=== PATIENT | female | born 2000 | race Caucasian/White ===

== ENCOUNTER 2024-08-03 21:53 | Inpatient (IN) | payer BC ==
[2024-08-03] MEDS: Sodium Chloride 0.9% 10 ML Syringe FLUSH ONE (22:41)
[2024-08-03 22:51] LABS: APPEARANCE,URINE CLOUDY (Clear); BILIRUBIN,URINE NEGATIVE (Negative); COLOR,URINE YELLOW (Yellow); GLUCOSE,URINE NEGATIVE (Negative); KETONES,URINE NEGATIVE (Negative); LEUKOCYTE ESTERASE,URINE NEGATIVE (Negative); NITRITE,URINE NEGATIVE (Negative); OCCULT BLOOD,URINE NEGATIVE (Negative); PROTEIN,URINE NEGATIVE (Negative)
[2024-08-03] MEDS: Sodium Chloride 0.9% 1,000 ML IV ONE (22:54)
[2024-08-03 22:55] LABS: BASOPHILS PERCENT AUTO 0.2 % (0.0-1.0); EOSINOPHILS ABSOLUTE AUTO 0.1 K/mm3 (0.0-0.4); EOSINOPHILS PERCENT AUTO 0.9 % (0.0-6.0); HEMATOCRIT 41.9 % (37.0-47.0); HEMOGLOBIN 14.3 gm/dl (12.0-16.0); IMMATURE GRAN ABSOLUTE AUTO 0.03 K/mm3 (0.00-0.05); IMMATURE GRAN PERCENT AUTO 0.2 % (0.0-0.4); LYMPHOCYTES PERCENT AUTO 14.4 % (24.0-44.0); MEAN CORPUSCULAR HEMOGLOBIN 28.9 pg (28.0-32.0); MEAN CORPUSCULAR HGB CONC 34.1 g/dl (32.0-36.0); MEAN CORPUSCULAR VOLUME 84.6 fl (83.0-99.0); MEAN PLATELET VOLUME 9.7 fl (9.4-12.3); MONOCYTES ABSOLUTE AUTO 0.7 K/mm3 (0.0-0.8); MONOCYTES PERCENT AUTO 5.3 % (0.0-8.0); PLATELET COUNT,PLT 303 K/mm3 (150-400); RED BLOOD CELL COUNT 4.95 M/mm3 (4.10-5.30); WHITE BLOOD CELL COUNT,WBC 13.92 K/mm3 (3.9-11.3)
[2024-08-03] MEDS: Famotidine 20 MG Tab PO ONE (22:57)
[2024-08-03] MEDS: Alum Hydrox/Mag Hydrox/Simeth 30 ML, Lidocaine 2% 15 ML PO ONE (22:57)
[2024-08-03 23:14] LABS: A/G RATIO 1.3 (1-2); ALBUMIN 4.3 g/dl (3.4-5.0); ANION GAP 11.8 (5-15); BILIRUBIN TOTAL 0.4 mg/dL (0.2-1.0); BUN/CREATININE RATIO 13.3 (14-18); CALCIUM 9.2 mg/dL (8.5-10.1); CREATININE 0.9 mg/dL (0.55-1.02); EST CRCL DRUG DOSING (CG) 94.54 mL/min; POTASSIUM,K 3.8 mEq/L (3.5-5.1); PROTEIN TOTAL,TP 7.7 g/dl (6.4-8.2)
[2024-08-03] MEDS: Sodium Chloride 0.9% 10 ML Syringe FLUSH PRN (23:19)
[2024-08-03] MEDS: Iopamidol 612 MG/ML 100 ML Bottle IVPUSH ONE (23:19)
[2024-08-03] MEDS: Iopamidol 612 MG/ML 30 ML SDV IVPUSH ONE (23:19)
[2024-08-04] MEDS: fentaNYL 100 MCG/2 ML SDV IVPUSH ONE (00:08)
[2024-08-04] MEDS: metroNIDAZOLE/Normal Saline 500 MG in Premix Bag 1 BAG IV ONE (00:12)
[2024-08-04] MEDS: Sodium Chloride 0.9% 1,000 ML IV ONE (01:33)
[2024-08-04] MEDS: Levofloxacin/Dextrose 5%-Water 750 MG in Premix Bag 1 BAG IV ONE (01:34)
[2024-08-04] MEDS: fentaNYL 100 MCG/2 ML SDV IVPUSH PRN (01:34)
[2024-08-04] MEDS: Ondansetron 4 MG/2 ML SDV IVPUSH PRN (01:57)
[2024-08-04] MEDS ORDERED: Midazolam 1 MG/ML 2 ML SDV ONE (05:30)
[2024-08-04] MEDS ORDERED: Rocuronium 50 MG/5 ML Vial ONE (05:30)
[2024-08-04] MEDS ORDERED: Sugammadex Sodium 200 MG/2 ML VIAL IV ONE (05:30)
[2024-08-04] MEDS ORDERED: Bupivacaine 0.5% 30 ML SDV ONE (05:30)
[2024-08-04] MEDS ORDERED: Propofol 200 MG/20 ML SDV ONE (05:30)
[2024-08-04] MEDS ORDERED: Lidocaine 1% 5 ML VIAL ONE (05:30)
[2024-08-04] MEDS ORDERED: fentaNYL 250 MCG/5 ML SDV ONE (05:30)
[2024-08-04] MEDS ORDERED: Ondansetron 4 MG/2 ML SDV ONE (05:30)
[2024-08-04] MEDS ORDERED: Ketorolac 30 MG/ML SDV ONE (05:30)
[2024-08-04] MEDS ORDERED: EPINEPHrine 1 MG/ML SDV ONE (05:30)
[2024-08-04] MEDS ORDERED: Dexamethasone 4 MG/ML 5 ML MDV ONE (05:30)
[2024-08-04] MEDS ORDERED: metroNIDAZOLE/Normal Saline 500 MG in Premix Bag 1 BAG IV ONE (06:32)
[2024-08-04] MEDS ORDERED: Levofloxacin/Dextrose 5%-Water 750 MG in Premix Bag 1 BAG IV ONE (06:33)
[2024-08-04] MEDS ORDERED: Levofloxacin/Dextrose 5%-Water 250 MG in Premix Bag 1 BAG IV ONE (06:37)
[2024-08-04] MEDS ORDERED: fentaNYL 100 MCG/2 ML SDV IVPUSH PRN (06:47)
[2024-08-04] MEDS ORDERED: Sodium Chloride 0.9% 10 ML Syringe FLUSH PRN (06:47)
[2024-08-04] MEDS ORDERED: HYDROmorphone 0.5 MG/0.5 ML Syringe IVPUSH PRN (06:47)
[2024-08-04] MEDS ORDERED: Ondansetron 4 MG/2 ML SDV IVPUSH PRN (06:47)
[2024-08-04] MEDS ORDERED: Lactated Ringers 1,000 ML IV SCH (07:00)
[2024-08-04] MEDS ORDERED: Sodium Chloride 0.9% 10 ML Syringe FLUSH SCH (09:00)
== END 2024-08-04 10:16 | disposition home or self-care (01) | DRG 234 ==
LOC: JD.ED 21:53 → JD.MS 08-04 00:02
PROVIDERS: ADMIT Surgery; ATTEND Surgery
PROC: 0DTJ4ZZ Resection of Appendix, Percutaneous Endoscopic Approach (ICD-10-PCS; principal; 2024-08-04 07:30)
DX: K35.80 Unspecified acute appendicitis (principal); I10 Essential (primary) hypertension; F17.210 Nicotine dependence, cigarettes, uncomplicated; Z88.0 Allergy status to penicillin; Z88.2 Allergy status to sulfonamides; Z88.1 Allergy status to other antibiotic agents; Z98.890 Other specified postprocedural states
CPT/HCPCS: 36415; 74177; 74177-26; 80053; 81003; 83690; 84703; 85025; 99285; A9270-GY; J0171; J0665; J1100; J1596; J1836; J1885; J1956; J2250; J2405; J2704; J3010; J3490; J7030; Q9967

== ENCOUNTER 2024-08-08 19:26 | Emergency (ER) | payer BC ==
[2024-08-08 20:13] LABS: BASOPHILS PERCENT AUTO 0.1 % (0.0-1.0); EOSINOPHILS ABSOLUTE AUTO 0.1 K/mm3 (0.0-0.4); EOSINOPHILS PERCENT AUTO 1.3 % (0.0-6.0); HEMATOCRIT 41.9 % (37.0-47.0); HEMOGLOBIN 14.1 gm/dl (12.0-16.0); IMMATURE GRAN ABSOLUTE AUTO 0.02 K/mm3 (0.00-0.05); IMMATURE GRAN PERCENT AUTO 0.3 % (0.0-0.4); LYMPHOCYTES ABSOLUTE AUTO 1.1 K/mm3 (1.0-4.8); LYMPHOCYTES PERCENT AUTO 15.7 % (24.0-44.0); MEAN CORPUSCULAR HEMOGLOBIN 28.1 pg (28.0-32.0); MEAN CORPUSCULAR HGB CONC 33.7 g/dl (32.0-36.0); MEAN CORPUSCULAR VOLUME 83.6 fl (83.0-99.0); MEAN PLATELET VOLUME 9.5 fl (9.4-12.3); MONOCYTES ABSOLUTE AUTO 0.5 K/mm3 (0.0-0.8); MONOCYTES PERCENT AUTO 7.1 % (0.0-8.0); NEUTROPHILS ABSOLUTE AUTO 5.1 K/mm3 (1.8-7.7); NEUTROPHILS PERCENT AUTO 75.5 % (41.0-71.0); PLATELET COUNT,PLT 304 K/mm3 (150-400); RED BLOOD CELL COUNT 5.01 M/mm3 (4.10-5.30); WHITE BLOOD CELL COUNT,WBC 6.74 K/mm3 (3.9-11.3)
[2024-08-08] MEDS: Ondansetron 4 MG/2 ML SDV IVPUSH ONE (20:19)
[2024-08-08] MEDS: Sodium Chloride 0.9% 1,000 ML IV ONE (20:19)
[2024-08-08] MEDS: Acetaminophen 325 MG Tab PO ONE (20:38)
[2024-08-08 20:42] LABS: A/G RATIO 1.2 (1-2); ALBUMIN 4.2 g/dl (3.4-5.0); ANION GAP 13.2 (5-15); BILIRUBIN TOTAL 0.7 mg/dL (0.2-1.0); BUN/CREATININE RATIO 11.3 (14-18); C-REACTIVE PROTEIN 1.09 mg/dL (<0.30); CALCIUM 9.3 mg/dL (8.5-10.1); CREATININE 0.8 mg/dL (0.55-1.02); EST CRCL DRUG DOSING (CG) 106.36 mL/min; POTASSIUM,K 4.2 mEq/L (3.5-5.1); PROTEIN TOTAL,TP 7.7 g/dl (6.4-8.2)
== END 2024-08-08 21:30 | disposition home or self-care (01) ==
LOC: JD.ED 19:26
DX: K59.00 Constipation, unspecified (principal); I10 Essential (primary) hypertension; Z90.49 Acquired absence of other specified parts of digestive tract; Z88.0 Allergy status to penicillin; Z88.1 Allergy status to other antibiotic agents; Z88.2 Allergy status to sulfonamides; Z88.5 Allergy status to narcotic agent; Z88.8 Allergy status to other drugs, medicaments and biological substances; Z91.018 Allergy to other foods; Z79.899 Other long term (current) drug therapy
CPT/HCPCS: 36415; 80053; 85025; 86140; 87428; 96361; 96374; 99284; A9270; J2405; J7030